=== PATIENT | male | born 1975 | race Caucasian/White ===

== ENCOUNTER 2024-09-15 20:14 | Inpatient (IN) | payer OTHER, SELFPAY ==
[2024-09-15] VITALS (8 sets, daily range): BP systolic 122–137; BP diastolic 81–93; PULSE 85–104; RESP 17–27; TEMP 36.7–37.2; O2SAT 92–98; BMI 31.4
[2024-09-15 20:53] LABS: Absolute Neutrophil Count 14.7 X10^3/uL (2.0-7.7); Basophil# 0.03 X10^3/uL; Basophil% 0.2 % (0-1); Eosinophil# 0.01 X10^3/uL; Eosinophils% 0.1 % (0-5); Hematocrit 42.4 % (40-54); Hemoglobin 14.1 g/dL (13.0-16.5); Lymphocyte % 10.8 % (19-41); Mean Corp Hgb Conc 33.3 g/dL (32-36); Mean Corpuscular Hgb 29.4 pg (27.0-32.0); Mean Corpuscular Volume 88.5 fL (80-94); Monocyte# 1.72 X10^3/uL; Monocyte% 9.3 % (0-10); NRBC Flagged by Analyzer 0 % (0-5); Neutrophil # 14.65 X10^3/uL (2.7-7.7); Neutrophil % 78.8 % (47-70); POSITIVE DIFFERENTIAL YES; Platelet Count 245 K/mm3 (150-450); RBC Distribution Width CV 13.2 % (11.6-14.6); RBC Distribution Width SD 43.2 fl (35.1-43.9); Red Blood Count 4.79 M/mm3 (4.6-6.2); White Blood Count 18.6 K/mm3 (4.4-11.0)
[2024-09-15] MEDS: Morphine 4 MG/ML Syringe IV ×2 (20:55→22:31)
[2024-09-15] MEDS: Ondansetron 4 MG/2 ML Vial IV (20:55)
[2024-09-15 21:06] LABS: Differential Indicated SCAN CRITERIA MET
[2024-09-15 21:16] LABS: Anion Gap 5 (5-15); BUN 16 mg/dL (7-18); BUN/Creat Ratio 15.4 RATIO (10-20); Calcium,Total 9.1 mg/dL (8.5-10.1); Chloride 104 mmol/L (98-107); Creatinine, Serum 1.04 mg/dL (0.70-1.30); EST Glomerular Filtration Rate 80 mL/min (>60); Est Glom Filt Rate - Afr Amer 97 mL/min (>60); Estimated Creatinine Clearance 90.48 ml/min; Glucose 161 mg/dL (74-106); Potassium 3.9 mmol/L (3.5-5.1); Sodium Level 134 mmol/L (136-145); Troponin-I HS (w/2H Reflex) < 3 pg/mL (3.0-78.0)
[2024-09-15] MEDS: Aspirin 81 MG TAB.CHEW 163 MG PO (21:23)
[2024-09-15 21:28] LABS: Differential Comment SCANNED; Reactive Lymphocyte 1+
[2024-09-15] MEDS: Ceftriaxone 1 GM/50 ML BAG IV (22:15)
[2024-09-15 22:47] LABS: Reflex Troponin-HS? (from REC) Y
[2024-09-15] MEDS: Azithromycin 500 MG in Dextrose 5%-Water (250mL Bag) 250 ML 250 MG IV (22:50)
[2024-09-15 23:33] LABS: Troponin-I HS < 3 pg/mL (3.0-78.0)
[2024-09-16] VITALS (15 sets, daily range): BP systolic 103–132; BP diastolic 71–88; PULSE 73–99; RESP 16–24; TEMP 36.3–37.4; O2SAT 88–97; BMI 32.5
[2024-09-16 00:01] LABS: D-Dimer Quantitative (DVT/PE) 3.12 FEU/ug/m (0.27-0.49)
[2024-09-16] MEDS: guaiFENesin 1,200 MG Tablet 1200 MG PO ×3 (00:51→22:12)
[2024-09-16] MEDS: proMETHazine 25 MG/ML Syringe 12.5 MG IM (01:00)
[2024-09-16] MEDS: Mag Hydrox/Al Hydrox/Simeth 30 ML UDC PO (01:00)
[2024-09-16] MEDS: Acetaminophen 325 MG Tablet 650 MG PO (01:00)
[2024-09-16] MEDS: Benzonatate 100 MG Capsule PO (01:01)
[2024-09-16] MEDS: MELATONIN 3 MG TABLET PO (01:01)
[2024-09-16] MEDS: 0.9% Normal Saline (1000mL) 1,000 ML 70 ML IV (01:10)
[2024-09-16] MEDS: Morphine 2 MG/ML Syringe IV ×3 (03:26→16:10)
[2024-09-16] MEDS: 0.9% Saline Lock 10 ML Syringe IV ×4 (03:27→16:11)
[2024-09-16] MEDS: Enoxaparin 100 MG/ML Syringe 90 MG SC (03:53)
[2024-09-16] MEDS: Ketorolac 15 MG/ML Vial IV (03:53)
[2024-09-16 05:53] LABS: Absolute Lymphocyte Count 1.61 X10^3/uL (0.83-4.51); Absolute Neutrophil Count 14.9 X10^3/uL (2.0-7.7); Basophil# 0.03 X10^3/uL; Basophil% 0.2 % (0-1); Eosinophil# 0.01 X10^3/uL; Eosinophils% 0.1 % (0-5); Hematocrit 37.2 % (40-54); Hemoglobin 12.7 g/dL (13.0-16.5); Lymphocyte # 1.61 X10^3/ul (0.83-4.51); Lymphocyte % 8.7 % (19-41); Mean Corp Hgb Conc 34.1 g/dL (32-36); Mean Corpuscular Hgb 30.3 pg (27.0-32.0); Mean Corpuscular Volume 88.8 fL (80-94); Mean Platelet Vol. 9.2 fl (6.2-12.0); Monocyte% 10.2 % (0-10); NRBC Flagged by Analyzer 0 % (0-5); Neutrophil # 14.93 X10^3/uL (2.7-7.7); Neutrophil % 80.3 % (47-70); POSITIVE DIFFERENTIAL YES; Platelet Count 216 K/mm3 (150-450); RBC Distribution Width CV 13.3 % (11.6-14.6); RBC Distribution Width SD 43.1 fl (35.1-43.9); Red Blood Count 4.19 M/mm3 (4.6-6.2); White Blood Count 18.6 K/mm3 (4.4-11.0)
[2024-09-16 06:26] LABS: Differential Indicated SCAN CRITERIA MET
[2024-09-16 06:27] LABS: Differential Comment SCANNED; Platelet Estimate ADEQUATE (ADEQ); Red Cell Morphology NORM C+C NORMAL (NORM C&C)
[2024-09-16 06:34] LABS: ALB/GLOB Ratio 0.8 RATIO (0.9-2.4); AST(SGOT) 47 U/L (15-37); Alanine Aminotransfer ALT/SGPT 47 U/L (16-61); Albumin, Serum 3.1 g/dL (3.2-5.0); Alkaline Phosphatase 111 U/L (45-117); Anion Gap 7 (5-15); BUN 15 mg/dL (7-18); BUN/Creat Ratio 14.2 RATIO (10-20); Calcium,Total 8.5 mg/dL (8.5-10.1); Chloride 102 mmol/L (98-107); Creatinine, Serum 1.06 mg/dL (0.70-1.30); EST Glomerular Filtration Rate 78 mL/min (>60); Est Glom Filt Rate - Afr Amer 95 mL/min (>60); Estimated Creatinine Clearance 84.45 ml/min; Globulin 3.7 g/dL (2.2-4.2); Glucose 147 mg/dL (74-106); Magnesium 2.1 mg/dL (1.6-2.6); Potassium 3.8 mmol/L (3.5-5.1); Protein, Total 6.8 g/dL (6.4-8.2); Sodium Level 131 mmol/L (136-145); Thyroid Stim Hormone (TSH) 0.902 uIU/mL (0.358-3.740)
[2024-09-16] MEDS: Lactobacillis Acidophilus 1 CAP PO ×3 (10:08→22:12)
[2024-09-16] MEDS: Ibuprofen 400 MG Tablet 600 MG PO (15:16)
[2024-09-16] MEDS: Ipratropium/Albuterol Sulfate 3 ML AMPUL.NEB INHALATION (19:30)
[2024-09-16] MEDS: Azithromycin 500 MG in Dextrose 5%-Water (250mL Bag) 250 ML 250 MG IV (21:13)
[2024-09-16] MEDS: Ceftriaxone 1 GM/50 ML BAG IV (22:12)
[2024-09-17] VITALS (14 sets, daily range): BP systolic 112–126; BP diastolic 71–76; PULSE 84–107; RESP 18–20; TEMP 36.8–37.8; O2SAT 89–95; BMI 32.5
[2024-09-17] MEDS: Ibuprofen 400 MG Tablet 600 MG PO ×3 (00:31→16:06)
[2024-09-17] MEDS: 0.9% Normal Saline (1000mL) 1,000 ML 70 ML IV (02:45)
[2024-09-17] MEDS: Morphine 2 MG/ML Syringe IV ×5 (02:50→22:18)
[2024-09-17] MEDS: Enoxaparin 100 MG/ML Syringe 90 MG SC ×3 (03:43→22:04)
[2024-09-17 06:11] LABS: Absolute Lymphocyte Count 2.07 X10^3/uL (0.83-4.51); Absolute Neutrophil Count 8.9 X10^3/uL (2.0-7.7); Basophil# 0.04 X10^3/uL; Basophil% 0.3 % (0-1); Eosinophil# 0.05 X10^3/uL; Eosinophils% 0.4 % (0-5); Hematocrit 36.4 % (40-54); Lymphocyte # 2.07 X10^3/ul (0.83-4.51); Lymphocyte % 16.2 % (19-41); Mean Corpuscular Hgb 29.3 pg (27.0-32.0); Mean Platelet Vol. 9.3 fl (6.2-12.0); Monocyte# 1.69 X10^3/uL; Monocyte% 13.2 % (0-10); NRBC Flagged by Analyzer 0 % (0-5); Neutrophil # 8.86 X10^3/uL (2.7-7.7); Neutrophil % 69.5 % (47-70); POSITIVE DIFFERENTIAL YES; Platelet Count 229 K/mm3 (150-450); RBC Distribution Width CV 13.3 % (11.6-14.6); RBC Distribution Width SD 43.8 fl (35.1-43.9); Red Blood Count 4.09 M/mm3 (4.6-6.2); White Blood Count 12.8 K/mm3 (4.4-11.0)
[2024-09-17 06:20] LABS: Differential Indicated SCAN CRITERIA MET
[2024-09-17 06:49] LABS: Anion Gap 6 (5-15); BUN 12 mg/dL (7-18); BUN/Creat Ratio 14.7 RATIO (10-20); Calcium,Total 8.6 mg/dL (8.5-10.1); Chloride 106 mmol/L (98-107); Creatinine, Serum 0.82 mg/dL (0.70-1.30); EST Glomerular Filtration Rate 105 mL/min (>60); Est Glom Filt Rate - Afr Amer 127 mL/min (>60); Estimated Creatinine Clearance 109.17 ml/min; Glucose 112 mg/dL (74-106); Sodium Level 136 mmol/L (136-145)
[2024-09-17 06:56] LABS: Differential Comment SCANNED
[2024-09-17] MEDS: Ipratropium/Albuterol Sulfate 3 ML AMPUL.NEB INHALATION ×3 (07:11→15:28)
[2024-09-17] MEDS: Benzonatate 100 MG Capsule PO ×2 (07:42→14:20)
[2024-09-17] MEDS: 0.9% Saline Lock 10 ML Syringe IV ×3 (07:42→22:18)
[2024-09-17] MEDS: Lactobacillis Acidophilus 1 CAP PO ×4 (09:57→22:04)
[2024-09-17] MEDS: guaiFENesin 1,200 MG Tablet 1200 MG PO ×2 (09:57→22:04)
[2024-09-17] MEDS: Bisacodyl 5 MG Tablet 10 MG PO (18:27)
[2024-09-17] MEDS: Azithromycin 500 MG in Dextrose 5%-Water (250mL Bag) 250 ML 250 MG IV (22:04)
[2024-09-17] MEDS: Ceftriaxone 1 GM/50 ML BAG IV (23:11)
[2024-09-18] VITALS (9 sets, daily range): BP systolic 116–127; BP diastolic 74–84; PULSE 72–100; RESP 16–20; TEMP 37–37.2; O2SAT 91–95; BMI 32.5
[2024-09-18] MEDS: Morphine 2 MG/ML Syringe IV ×3 (04:07→14:39)
[2024-09-18] MEDS: Ipratropium/Albuterol Sulfate 3 ML AMPUL.NEB INHALATION ×2 (07:10→11:24)
[2024-09-18 07:11] LABS: Absolute Neutrophil Count 10.4 X10^3/uL (2.0-7.7); Basophil# 0.04 X10^3/uL; Basophil% 0.3 % (0-1); Eosinophil# 0.14 X10^3/uL; Hematocrit 36.6 % (40-54); Hemoglobin 12.4 g/dL (13.0-16.5); Lymphocyte % 12.4 % (19-41); Mean Corp Hgb Conc 33.9 g/dL (32-36); Mean Corpuscular Hgb 30.2 pg (27.0-32.0); Mean Corpuscular Volume 89.1 fL (80-94); Mean Platelet Vol. 9.7 fl (6.2-12.0); Monocyte# 1.39 X10^3/uL; Monocyte% 10.1 % (0-10); NRBC Flagged by Analyzer 0 % (0-5); Neutrophil # 10.42 X10^3/uL (2.7-7.7); Neutrophil % 75.8 % (47-70); Platelet Count 283 K/mm3 (150-450); RBC Distribution Width CV 13.5 % (11.6-14.6); RBC Distribution Width SD 44.2 fl (35.1-43.9); Red Blood Count 4.11 M/mm3 (4.6-6.2); White Blood Count 13.8 K/mm3 (4.4-11.0)
[2024-09-18 07:46] LABS: Anion Gap 8 (5-15); BUN 13 mg/dL (7-18); BUN/Creat Ratio 15.7 RATIO (10-20); Calcium,Total 8.7 mg/dL (8.5-10.1); Chloride 108 mmol/L (98-107); Creatinine, Serum 0.83 mg/dL (0.70-1.30); EST Glomerular Filtration Rate 104 mL/min (>60); Est Glom Filt Rate - Afr Amer 125 mL/min (>60); Estimated Creatinine Clearance 107.79 ml/min; Glucose 114 mg/dL (74-106); Potassium 3.7 mmol/L (3.5-5.1); Sodium Level 137 mmol/L (136-145)
[2024-09-18] MEDS: Benzonatate 100 MG Capsule PO (09:38)
[2024-09-18] MEDS: 0.9% Saline Lock 10 ML Syringe IV ×2 (09:39→14:39)
[2024-09-18] MEDS: Lactobacillis Acidophilus 1 CAP PO ×2 (09:41→14:39)
[2024-09-18] MEDS: Enoxaparin 100 MG/ML Syringe 90 MG SC (09:41)
[2024-09-18] MEDS: guaiFENesin 1,200 MG Tablet 1200 MG PO (10:01)
[2024-09-18] MEDS: Enoxaparin 60 MG/0.6 ML Syringe 50 MG SC (15:27)
[2024-09-19 08:54] LABS: Pathologist Review Reviewed
[2024-09-19 08:55] LABS: Pathologist Review Reviewed
[2024-09-19 08:55] LABS: Pathologist Review Reviewed
== END 2024-09-18 16:00 | disposition home or self-care (01) | DRG 176 ==
LOC: ED 22:41 → MS3 23:03
PROVIDERS: Physician Assistant; Admitting Provider Internal Medicine; Emergency Provider Emergency Medicine; PCP Family Medicine; Visit Provider Internal Medicine
DX: I26.99 Other pulmonary embolism without acute cor pulmonale (principal); J98.11 Atelectasis; E66.811 Obesity, class 1; Z68.31 Body mass index [BMI] 31.0-31.9, adult; F17.210 Nicotine dependence, cigarettes, uncomplicated; R09.02 Hypoxemia
CPT/HCPCS: 36415; 71045; 71046; 71275; 78598; 80048; 80053; 83735; 84100; 84443; 84484; 85025; 85379; 87070; 87205; 87449; 87633; 93005; 94640; 94667; 94668; 99285; 99406; A9540; A9567; J7030; J7040; Q9967; A4216; J2405

== ENCOUNTER → 2024-09-26 | Outpatient (CLI) | payer OTHER, SELFPAY ==
[2024-09-26 16:27] LABS: Absolute Lymphocyte Count 2.39 X10^3/uL (0.83-4.51); Absolute Neutrophil Count 7.3 X10^3/uL (2.0-7.7); Basophil# 0.07 X10^3/uL; Basophil% 0.6 % (0-1); Eosinophil# 0.26 X10^3/uL; Eosinophils% 2.3 % (0-5); Hemoglobin 13.2 g/dL (13.0-16.5); Lymphocyte # 2.39 X10^3/ul (0.83-4.51); Lymphocyte % 21.4 % (19-41); Mean Corp Hgb Conc 32.2 g/dL (32-36); Mean Corpuscular Volume 90.1 fL (80-94); Mean Platelet Vol. 8.3 fl (6.2-12.0); Monocyte# 1.02 X10^3/uL; Monocyte% 9.1 % (0-10); NRBC Flagged by Analyzer 0 % (0-5); Neutrophil % 65.5 % (47-70); Platelet Count 617 K/mm3 (150-450); RBC Distribution Width CV 13.2 % (11.6-14.6); RBC Distribution Width SD 43.9 fl (35.1-43.9); Red Blood Count 4.55 M/mm3 (4.6-6.2); White Blood Count 11.2 K/mm3 (4.4-11.0)
[2024-09-26 17:05] LABS: Cholesterol 167 mg/dL (200); High Density Lipoprotein 23 mg/dL; Triglycerides 199 mg/dL; Very Low Density Lipoprotein 40 mg/dL (5-40)
== END | disposition home or self-care (01) ==
LOC: LAB 16:00
PROVIDERS: PCP Family Medicine
DX: D72.829 Elevated white blood cell count, unspecified (principal); Z13.220 Encounter for screening for lipoid disorders
CPT/HCPCS: 36415; 80061; 85025